=== PATIENT | male | born 1990 | race Hispanic/Latino ===

== ENCOUNTER 2017-11-22 07:22 | Emergency (ER) | payer SELFPAY ==
[2017-11-22] MEDS ORDERED: Ibuprofen 200 MG TAB ONE (07:32)
== END 2017-11-22 07:47 | disposition home or self-care (01) ==
LOC: BURERS 07:22
DX: J11.1 Influenza due to unidentified influenza virus with other respiratory manifestations (principal); F17.210 Nicotine dependence, cigarettes, uncomplicated
CPT/HCPCS: 99283